=== PATIENT | female | born 1990 | race Caucasian/White ===

== ENCOUNTER 2020-03-24 15:33 | Emergency (ER) | payer OTHER ==
[~2020-03-24] VITALS: Ht 58.9 cm; Wt 164.0 kg
[~2020-03-24 15:33] MED LIST: ACET-93 PO; DCS100C PO; IBUP-1780 PO; MILK1TAB PO; OXC5T PO; PREN-142 PO
--- OUTSIDE RECORDS SUMMARY | 2020-03-24 15:39 | XMS REPORT | Continuity of Care Document ---
Author Organization Unknown Address Unknown Phone Unavailable Allergies Active Description Code Type Severity Reaction Onset Reported/Identified Relationship to Patient Clinical Status Yes No Known Drug Allergies [id number] Drug Allergy Unknown N/A 11/06/2019 Medications There is no data. Problems Date Dx Coded Attending Type Code Diagnosis Diagnosed By 11/08/2019 SEALYESSI Selby DORY E Ot O36.63X0 MATERNAL CARE FOR EXCESS GROWTH, T 11/08/2019 SEALS DO BUD E Ot O48.0 POST-TERM 11/08/2019 SEALS DO UBD E Ot O66.0 OBSTRUCTED LABOR DUE TO SHOULDER DYSTOCI 11/08/2019 SEALS DO BUD E Ot O70.0 FIRST DEGREE PERINEAL LACERATION DURING 11/08/2019 SEALS DO, BUD E Ot O71.8 2 OTHER SPECIFIED TRAUMA TO PERINEUM AND V 11/08/2019 SEALS DO, BUD E Ot Z37.0 SINGLE LIVE 11/08/2019 SEALS DO BUD E Ot Z3A.4 1 41 WEEKS GESTATION OF Procedures Code Description Performed By Per formed On [id number] PIAÑ OF PRODUCTS OF CONCEPTION, EXTE 11/06/2019 Results Test Result Range Complete blood count (CBC) with automate d white blood cell (WBC) differential - 11/06/19 21:00 Blood leukocytes automated count (number/volume) 12.4 10*3/uL 4.3-11.0 Blood erythrocytes automated count (number/volume) 3.66 10*6/uL 4.35-5.85 Venous blood hemoglobin measurement (mass/volume) 11.6 g/dL 11.5-16.0 Blood hematocrit (volume fraction) 35 % 35-52 Automated erythrocyte mean corpuscular volume 95 [ foz_us] 80-99 Automated erythrocyte mean corpuscular h emoglobin (mass per erythrocyte) 32 pg 25-34 Automated erythrocyte mean corpuscular h emoglobin concentration measurement (mass/volume) 33 g/dL 32-36 Automated erythrocyte distribution width ratio 13. 5 % 10.0- 14.5 Automated blood platelet count (count/volume) 259 10*3/uL 130-400 Automated blood platelet mean volume measurement 11.1 [foz_us] 7.4-10.4 Automated blood neutrophils/100 leukocytes 87 % 42-75 Automated blood lymphocytes/100 leukocytes 7 % 12-44 Blood monocytes/100 leukocytes 6 % 0-12 Automated blood eosinophils/100 leukocytes 0 % 0-10 Automated blood basophils/100 leukocytes 0 % 0-10 Blood neutrophils automated count (number/volume) 10.8 10*3 1.8-7.8 Blood lymphocytes automated count (number/volume) 0.8 10*3 1.0-4.0 Blood monocytes automated count (number/volume) 0. 8 10*3 0.0-1.0 Automated eosinophil count 0.0 10*3/uL 0 .0-0.3 Automated blood basophil count (count/volume) 0.0 10*3/uL 0.0-0.1 Blood type T Indirect antibody screen pa louie - 11/06/19 21:00 WRISTBAND NUMBER [id number] NRG ABO+Rh group OP NRG Blood group antibody screen NEGATIVE NR G Capillary blood glucose measurement by g lucometer (mass/volume) - 11/06/19 21:19 Capillary blood glucose measurement by glucometer (mas s/volume) 48 mg/dL 70-110 Complete blood count (CBC) with automate d white blood cell (WBC) differential - 11/07/19 06:10 Blood leukocytes automated count (number/volume) 14.1 10*3/uL 4.3-11.0 Blood erythrocytes automated count (number/volume) 3.70 10*6/uL 4.35-5.85 Venous blood hemoglobin measurement (mass/volume) 11.6 g/dL 11.5-16.0 Blood hematocrit (volume fraction) 35 % 35-52 Automated erythrocyte mean corpuscular volume 94 [ foz_us] 80-99 Automated erythrocyte mean corpuscular h emoglobin (mass per erythrocyte) 31 pg 25-34 Automated erythrocyte mean corpuscular h emoglobin concentration measurement (mass/volume) 33 g/dL 32-36 Automated erythrocyte distribution width ratio 13. 5 % 10.0- 14.5 Automated blood platelet count (count/volume) 237 10*3/uL 130-400 Automated blood platelet mean volume measurement 11.3 [foz_us] 7.4-10.4 Automated blood neutrophils/100 leukocytes 82 % 42-75 Automated blood lymphocytes/100 leukocytes 7 % 12-44 Blood monocytes/100 leukocytes 11 % 0-12 Automated blood eosinophils/100 leukocytes 0 % 0-10 Automated blood basophils/100 leukocytes 0 % 0-10 Blood neutrophils automated count (number/volume) 11.5 10*3 1.8-7.8 Blood lymphocytes automated count (number/volume) 1.0 10*3 1.0-4.0 Blood monocytes automated count (number/volume) 1. 6 10*3 0.0-1.0 Automated eosinophil count 0.0 10*3/uL 0 .0-0.3 Automated blood basophil count (count/volume) 0.0 10*3/uL 0.0-0.1 Manual absolute plasma cell count - 02/0 01/21 06:10 Blood monocytes/100 leukocytes 10 % NRG Manual blood segmented neutrophils/100 leukocytes 82 % NRG Blood band neutrophils/100 leukocytes 2 % NRG Manual blood lymphocytes/100 leukocytes 6 % NRG Manual eosinophils/100 leukocytes in nose 0 % NRG Manual blood basophils/100 leukocytes 0 % NRG Blood erythrocyte morphology finding identification NORMAL NRG Encounters ACCT No. Visit Date/Time Discharge Status Pt. Type Provider Facility Loc./Unit Complaint [id number] 11/06/2019 19:47:00 020 12:25:00 DIS Inpatient BUD WEST DO [facility] LABOR
--- NOTE | 2020-03-24 15:51 | ED Fall/Injury ---
General Stated Complaint: L FOOT PAIN Source: patient Exam Limitations: no limitations (EVAN RAZA) History of Present Illness Date Seen by Provider: Mar 24, 2020 Time Seen by Provider: 15:30 Initial Comments PT to er by CONNIE that [place] Landed on left side. No Head impact and no LOC. Pain in top of foot and difficult to bear weight. No meds. Ice and elevated. No Sig PMH/PSH. (EVAN RAZA) Allergies and Home Medications Allergies Coded Allergies: No Known Drug Allergies (Unverified , 11/06/19) Home Medications Acetaminophen 500 Mg Tablet, 1,000 MG PO Q6HR Prescribed by: BUD E SEALS on 11/08/19 0632 Docusate Sodium 100 Mg Capsule, 100 MG PO BID Prescribed by: BUD E SEALS on 11/08/19 0632 Ibuprofen 800 Mg Tablet, 800 MG PO Q8HR Prescribed by: BUD E SEALS on 11/08/19 0632 Milk Thistle/Nac/Dandel/Turmer 1 Each Tablet, 1 EACH PO DAILY, (Reported) Oxycodone Hcl 5 Mg Tab, 5 MG PO Q6H PRN for PAIN-SEVERE (8-10) Prescribed by: BUD E RAMSESS on 11/08/19 0632 Vit No.124/Iron/FA 1 Each Tablet, 1 EACH PO DAILY, (Reported) Patient Home Medication List Home Medication List Reviewed: Yes (EVAN RAZA) Review of Systems Review of Systems Constitutional: No chills, No diaphoresis Eyes: Denies Blindness, Denies Blurred Vision Ears, Nose, Mouth, Throat: denies ear pain, denies ear discharge Respiratory: No cough, No short of breath Cardiovascular: No chest pain, No edema Gastrointestinal: No abdominal pain, No nausea Genitourinary: No dysuria, No frequency Musculoskeletal: see HPI, joint pain (EVAN RAZA) All Other Systems Reviewed Negative Unless Noted: Yes (EVAN RAZA) Past Yhytszl-Dlfjbr-Iodivs Hx Patient Social History Alcohol Use: Denies Use Recreational Drug Use: No Smoking Status: Never a Smoker Recent Foreign Travel: No Contact w/Someone Who Travel: No Recent Hopitalizations: No (EVAN RAZA) Seasonal Allergies Seasonal Allergies: No (EVAN RAZA) Past Medical History Surgeries: No Respiratory: No Currently Using CPAP: No Currently Using BIPAP: No Cardiac: No Neurological: No Reproductive Disorders: No Sexually Transmitted Disease: No HIV/AIDS: No Genitourinary: No Gastrointestinal: No Musculoskeletal: No Endocrine: No HEENT: No Loss of Vision: Denies Cancer: No Did You Recieve Any Treatments: No Psychosocial: No Integumentary: No Blood Disorders: No Adverse Reaction/Blood Tranf: No (EVAN RAZA) Family Medical History Patient reports no known family medical history. Physical Exam Vital Signs Vital Signs - First Documented 03/24/20 15:50 Temp 37.1 Pulse 130 Resp 18 B/P (MAP) 105/75 (85) Pulse Ox 99 O2 Delivery Room Air (YUSUF MENESES APRN) Vital Signs Capillary Refill : (EVAN RAZA) Height, Weight, BMI Height: '" Weight: lbs. oz. kg; 26.51 BMI Method: General Appearance: WD/WN, mild distress HEENT: PERRL/EOMI, pharynx normal Neck: full range of motion, normal inspection Cardiovascular: normal peripheral pulses, regular rate, rhythm, no edema Respiratory: no respiratory distress, no accessory muscle use Peripheral Pulses: 2+ Radial Pulses (R), 2+ Radial Pulses (L) Gastrointestinal: non tender, soft Extremities: other (Left ankle non tender) Neurologic/Psychiatric: alert, normal mood/affect, oriented x 3 (EVAN RAZA) [place] Coma Score Best Eye Response: (4) Open Spontaneously Best Verbal Response: (5) Oriented Best Motor Response: (6) Obeys Commands [place] Total: 15 (EVAN RAZA) Progress/Results/Core Measures Results/Orders Vital Signs/I&O 03/24/20 15:50 Temp 37.1 Pulse 130 Resp 18 B/P (MAP) 105/75 (85) Pulse Ox 99 O2 Delivery Room Air (YUSUF MENESES APRN) Diagnostic Imaging Diagonstic Imaging: Xray Plain Films/CT/US/NM/MRI: other (foot left) Comments NAME: BLAKE EASON [facility] REC#: [id number] PT STATUS: REG ER : 1990 PHYSICIAN: EVAN RAZA MD ADMIT DATE: 03/24/20/ER Draft Date of Exam:03/24/20 FOOT, LEFT, 3 VIEWS HISTORY: Fall, left foot injury. TECHNIQUE: Three views of the left foot. COMPARISON: None. FINDINGS: No acute fracture or dislocation is seen in the left foot. Alignment appears normal. Joint spaces are preserved. No cortical erosions are seen. IMPRESSION: No acute osseous abnormality is seen in the left foot. Dictated on workstation # [id number] Dict: 03/24/20 1639 Trans: 03/24/20 1646 PJ [id number] Interpreted by: STEPHEN LUND MD Electronically signed by: Reviewed: Reviewed by Me (EVAN RAZA) Departure Impression Primary Impression: Sprain or strain of foot Disposition: 01 HOME, SELF-CARE Condition: Stable Departure-Patient Inst. Decision time for Depature: 16:34 (YUSUF MENESES APRN) Referrals: NO,LOCAL PHYSICIAN (PCP/Family) Primary Care Physician Patient Instructions: Foot Sprain (DC) Add. Discharge Instructions: . You can quit using the crutches when the pain is tolerable. Return to ER for any concerns. Use Tylenol and ibuprofen for pain control. EVAN RAZA Mar 24, 2020 15:51 YUSUF MENESES APRN Mar 24, 2020 16:37
[2020-03-24 16:40] VITALS: BP 105/75
--- NOTE | 2020-03-24 16:46 | Diagnostic Imaging Report ---
HISTORY: Fall, left foot injury. TECHNIQUE: Three views of the left foot. COMPARISON: None. FINDINGS: No acute fracture or dislocation is seen in the left foot. Alignment appears normal. Joint spaces are preserved. No cortical erosions are seen. IMPRESSION: No acute osseous abnormality is seen in the left foot. Dictated by: Dictated on workstation # [id number]
== END 2020-03-24 17:00 | disposition home or self-care (01) ==
LOC: EDUNIT# 15:33 → ER 15:34
DX: S93.602A Unspecified sprain of left foot, initial encounter (principal); R40.2142 Coma scale, eyes open, spontaneous, at arrival to emergency department; R40.2242 Coma scale, best verbal response, confused conversation, at arrival to emergency department; R40.2362 Coma scale, best motor response, obeys commands, at arrival to emergency department; W19.XXXA Unspecified fall, initial encounter
CPT/HCPCS: 73630